=== PATIENT | male | born 1940 | race Caucasian/White ===

== ENCOUNTER 2017-03-19 08:27 | Outpatient (CLI) | payer OTHER ==
[~2017-03-19 08:27] MED LIST: GLIPIZIDE5 MG PO; JANUMET1 TA1 PO; LEVOTHYROXINE88 MCG PO; MELOXICAM15 MG PO; SIMVASTATIN20 MG PO; TAMSULOSIN HCL0.4 MG PO; VITAMIN C1000 MG PO; VITAMIN D-31000 UNIT PO; ZESTRIL5 MG PO
--- NOTE | 2017-03-19 11:34 | DIAGNOSTIC IMAGING REPORT ---
PROCEDURE: CT THORAX ABD PELVIS W/CONT INDICATION: HX: COLON CA and prostate cancer. TECHNIQUE: 150 ml of Isovue 300 injected intravenously and axial images were obtained of the entire thorax, abdomen, and pelvis with sagittal and coronal reformations. COMPARISON: 02/13/2016 FINDINGS: THORAX: Normal thyroid gland. No axillary, supraclavicular, mediastinal, or hilar adenopathy. No anterior or posterior masses. Normal esophagus without hiatal hernia. Mild aortic arch, aortic valvular, and coronary calcification. Chambers of the heart are normal size. No pericardial effusions. Stable sub centimeter right middle lobe pleural-based nodule. Minor posterior bibasilar atelectasis. The lungs are otherwise clear. The airway is patent and branches normally. No pleural effusions. No suspicious osseous lesions. ABDOMEN: Enlarged liver with an irregular margin. Overall cirrhotic morphology. No discrete hepatic mass. Punctate right lobe calcification. Multiple bilateral parapelvic and cortical renal cysts. Mildly enlarged spleen measuring 14.7 cm in AP direction and 15 cm in craniocaudal collection. This is fairly stable. Normal caliber abdominal aorta with moderately heavy atherosclerotic calcification. Normal gallbladder, adrenal glands, pancreas, and retroperitoneal structures. No adenopathy. Normal stomach, visible bowel loops bowel loops, and mesentery. No suspicious mass. PELVIS: Ileocolonic anastomosis in the right lower quadrant. Mild diverticular disease of the sigmoid. Brachia therapy seeds and of normal size prostate gland. Mild arterial atherosclerosis. Normal pelvic bowel loops, and colon. Normal partially filled urinary bladder, and lymph nodes. No suspicious adenopathy, soft tissue mass, or free pelvic fluid. Moderate spurring throughout the thoracic spine. No suspicious osseous lesion. IMPRESSION: 1. No evidence of recurrent disease in the chest, abdomen, or pelvis. 2. Cirrhotic liver with moderate, stable splenomegaly. 3. Brachia therapy seeds and a normal sized prostate gland. 4. Sigmoid diverticulosis. 5. Post partial right hemicolectomy and appendectomy. 6. [address] All CT scans at this facility use dose modulation, iterative reconstruction, and/or weight-based dosing when appropriate to reduce radiation dose to as low as reasonably achievable.
== END 2017-03-19 23:00 ==
LOC: CT SRH 08:27
DX: C18.9 Malignant neoplasm of colon, unspecified (principal)